=== PATIENT | male | born 1970 | race Caucasian/White ===

== ENCOUNTER → 2018-09-10 | Outpatient (CLI) | payer BC | LOC: CARDREHAB 07:33 → CARDLAB 09:31 | DX: R07.9 Chest pain, unspecified (principal) ==

== ENCOUNTER → 2019-08-05 | Outpatient (CLI) | payer BC | LOC: RAD 14:40 | DX: J98.4 Other disorders of lung (principal) ==

== ENCOUNTER → 2019-08-27 | Day surgery (SDC) | payer BC | LOC: MSO 08:05 | DX: R11.2 Nausea with vomiting, unspecified (principal); K57.90 Diverticulosis of intestine, part unspecified, without perforation or abscess without bleeding; K64.8 Other hemorrhoids; K62.89 Other specified diseases of anus and rectum; I10 Essential (primary) hypertension; Z79.899 Other long term (current) drug therapy; G47.33 Obstructive sleep apnea (adult) (pediatric); F41.9 Anxiety disorder, unspecified; F32.9 Major depressive disorder, single episode, unspecified; E66.9 Obesity, unspecified; Z68.32 Body mass index [BMI] 32.0-32.9, adult; Z88.6 Allergy status to analgesic agent; Z90.81 Acquired absence of spleen; Z86.19 Personal history of other infectious and parasitic diseases | CPT/HCPCS: 00811; J2704; J3010; J7120 ==

== ENCOUNTER → 2020-03-05 | Outpatient (CLI) | payer BC | LOC: RAD 12:56 | DX: M18.11 Unilateral primary osteoarthritis of first carpometacarpal joint, right hand (principal) ==

== ENCOUNTER → 2020-10-26 | Outpatient (CLI) | payer BC | LOC: LAB 15:50 | DX: U07.1 COVID-19 (principal) ==

== ENCOUNTER → 2021-03-02 | Outpatient (CLI) | payer BC | LOC: RAD 06:51 | DX: N50.812 Left testicular pain (principal) ==

== ENCOUNTER → 2021-03-02 | Outpatient (REF) | LOC: LAB 06:58 | DX: N50.812 Left testicular pain (principal) ==

== ENCOUNTER → 2021-08-08 | Outpatient (CLI) | payer BC | LOC: RAD 13:24 | DX: M51.36 Other intervertebral disc degeneration, lumbar region (principal) ==

== ENCOUNTER → 2022-06-13 | Outpatient (CLI) | payer BC ==
[2022-06-13 10:46] LABS: BASO # 0.07 K/mm3 (0.02-0.10); EOS # 0.75 K/mm3 (0.04-0.40); EOS % 8.1 % (0.0-4.0); HEMATOCRIT 44.1 % (42.0-52.0); LYMPH# 3.14 K/mm3 (1.50-4.00); MEAN CELL VOLUME 91 fl (78-100); MEAN CORPUSCULAR HEMOGLOBIN 31 pg (27-31); MEAN CORPUSCULAR HGB CONC 34 g/dL (33-37); MEAN PLATELET VOLUME 8.9 fl (7.4-10.4); MONO # 1.07 K/mm3 (0.20-0.80); NEU # 4.18 K/mm3 (1.40-6.50); PLATELET COUNT 339 K/mm3 (130-400); RED BLOOD COUNT 4.83 M/mm3 (4.20-5.60); RED CELL DISTRIBUTION WIDTH 13.9 % (11.5-14.5); WHITE BLOOD COUNT 9.2 K/mm3 (4.8-10.8)
[2022-06-13 10:54] LABS: POTASSIUM 4.4 mmol/L (3.5-5.1)
[2022-06-13 10:55] LABS: ALBUMIN 4.4 g/dL (3.5-5.0)
[2022-06-13 10:56] LABS: CALCIUM 9.5 mg/dL (8.3-10.5)
[2022-06-13 10:57] LABS: TOTAL PROTEIN 7.7 g/dL (6.4-8.3)
[2022-06-13 10:59] LABS: TOTAL BILIRUBIN 0.6 mg/dL (0.2-1.2)
== END ==
LOC: LAB 10:28
PROVIDERS: Family Medicine
DX: Z00.00 Encounter for general adult medical examination without abnormal findings (principal); Q89.01 Asplenia (congenital); G47.33 Obstructive sleep apnea (adult) (pediatric); I10 Essential (primary) hypertension; E78.5 Hyperlipidemia, unspecified; F41.1 Generalized anxiety disorder; E66.9 Obesity, unspecified; R53.83 Other fatigue

== ENCOUNTER → 2023-12-09 | Outpatient (CLI) | payer BC | LOC: RAD 09:44 | DX: D17.1 Benign lipomatous neoplasm of skin and subcutaneous tissue of trunk (principal) ==